=== PATIENT | male | born 1960 | race Caucasian/White ===

== ENCOUNTER → 2017-10-24 | Day surgery (SDC) | payer BC, OTHER ==
[~2017-10-24] VITALS: Ht 175.3 cm; Wt 98.0 kg
[~2017-10-24] MED LIST: LABETALOL HCL IV 5 MG/ML 20ML MDV IV STA; LABETALOL HCL IV 5 MG/ML 20ML MDV ONE; ONDANSETRON HCL INJ 2 MG/ML VIAL IV STA; PANTOPRAZOLE 40 MG 10ML VIAL IV STA; PROPOFOL IV EMULSION 10 MG/ML 20 ML VIAL ONE; ROCURONIUM BROMIDE 10 MG/ML 5ML VIAL ONE; SODIUM CHLORIDE 0.9% 1000ML 1,000 ML IV STA; SUCCINYLCHOLINE 200 MG/10 ML SYR ONE
[2017-10-24 19:54] LABS: BASOPHILS # (AUTO) 0.1 (0.0-0.1); BASOPHILS % 0.8 % (0.0-1.0); EOSINOPHILS # (AUTO) 0.1 (0.0-0.4); EOSINOPHILS % 0.9 % (0.0-6.0); HEMATOCRIT 50.9 % (38.2-49.6); HEMOGLOBIN 18.3 g/dL (14.0-18.0); LYMPHOCYTES # (AUTO) 1.9 (1.0-3.2); LYMPHOCYTES % 18.2 % (18.0-39.1); MEAN CORPUSCULAR HEMOGLOBIN 32.5 pg (28-32); MEAN CORPUSCULAR VOLUME 90.4 fL (81-99); MONOCYTES # (AUTO) 0.8 (0.2-0.8); MONOCYTES % 7.6 % (4.4-11.3); NEUTROPHILS # (AUTO) 7.7 (2.1-6.9); NEUTROPHILS % 72.2 % (38.7-80.0); PLATELET COUNT 223 x10e3/uL (140-360); RED BLOOD COUNT 5.63 x10e6/uL (4.3-5.7); RED CELL DISTRIBUTION WIDTH 12.6 % (11.7-14.4)
[2017-10-24 20:07] LABS: INR 0.95; PROTHROMBIN TIME 13.2 seconds (11.9-14.5)
[2017-10-24 20:08] LABS: PARTIAL THROMBOPLASTIN TIME 26.3 seconds (23.8-35.5)
[2017-10-24 20:21] LABS: ALANINE AMINOTRANSFERASE 36 IU/L (0-55); ALBUMIN 4.8 g/dL (3.5-5.0); ALBUMIN/GLOBULIN RATIO 1.3 (0.8-2.0); ALKALINE PHOSPHATASE 57 IU/L (40-150); ANION GAP 14.9 mmol/L (8-16); BLOOD UREA NITROGEN 17 mg/dL (7-26); BUN/CREATININE RATIO 14 (6-25); CALCIUM 10.2 mg/dL (8.4-10.2); CARBON DIOXIDE 27 mmol/L (22-29); CHLORIDE 103 mmol/L (98-107); CREATININE, SERUM 1.19 mg/dL (0.72-1.25); EST GLOMERULAR FILTRATION RATE > 60 ML/MIN (60-); GLUCOSE 94 mg/dL (74-118); LIPASE 409 U/L (8-78); MAGNESIUM 2.4 MG/DL (1.3-2.1); POTASSIUM 3.9 mmol/L (3.5-5.1); SODIUM 141 mmol/L (136-145)
--- NOTE | 2017-10-24 20:22 | Diagnostic Imaging Report ---
Portable chest x-ray CPT code 30549 INDICATION: Food bolus in the esophagus, chest pain COMPARISON: None FINDINGS: Frontal view of the chest obtained at 2007 hours. The cardiac silhouette is normal. No mediastinal air. The pulmonary vascular marking are normal. The lungs demonstrate no mass or infiltrate. The costophrenic angles are sharp. There is no pneumothorax. The osseous structures are intact and normal in morphology. IMPRESSION: 1. No pneumomediastinum or pneumothorax. 2. No foreign bodies. 3. Normal lungs. Signed by: Dr. Faye Castro MD on 10/24/2017 8:19 PM
[2017-10-24 20:31] LABS: TROPONIN I 0.035 ng/mL (0-0.300)
[2017-10-24 20:33] LABS: CREATINE KINASE 226 IU/L (30-200)
--- NOTE | 2017-10-25 04:56 | Operative Report ---
DATE OF PROCEDURE: October 24, 2017 REFERRING PHYSICIAN: Dr. Reinaldo Garcia PROCEDURE PERFORMED: Esophagogastroduodenoscopy with esophageal dilatation and biopsies. INDICATIONS FOR PROCEDURE: Dysphagia to solids, cannot swallow secretions, possible foreign body in the esophagus. MEDICATION: Patient was done under general endotracheal anesthesia. Please see anesthesiologist's note. PROCEDURE: With the patient in the supine position after induction of adequate general endotracheal anesthesia, a flexible fiberoptic Olympus gastroscope was introduced into the esophagus under direct visualization without any difficulty. The distal esophagus was diffusely ulcerated. It appears that the foreign body which was possibly a meat bolus had already passed. The scope was then advanced with ease into the stomach traversing a small hiatal hernia. There was a mild stricture noted at the GE junction and that was dilated to size 48-Macanese Powell. The mucosa overlying the antrum and the body revealed some diffuse erythema and moderate edema, and biopsies were obtained and sent to stain for H. pylori. Pylorus appeared to be of normal contour and shape. It was intubated with ease. The scope was advanced all the way to the 2nd portion of the duodenum. There was an approximately 8 mm sessile lesion noted in the proximal 2nd portion that was biopsied. The duodenal bulb appeared to be within normal limits. The scope was then withdrawn back into the stomach and retroflexion of the mucosa overlying the fundus and the cardia appeared to be within normal limits. The scope was then straightened out. The stomach was decompressed. The scope was subsequently withdrawn. Patient tolerated the procedure well. IMPRESSION 1. Ulcerated distal esophagus. 2. Esophageal stricture at gastroesophageal junction dilated to size 48-Macanese Powell. 3. Small hiatal hernia. 4. Gastritis, biopsied. Biopsies sent to stain for Helicobacter pylori. 5. Approximately 8 mm sessile nodule in proximal 2nd portion, biopsied. PLAN: Follow up histology. Initiate Protonix 40 mg 1 p.o. q.a.m. a.c. The patient will need a followup colonoscopy in 2-3 weeks with additional dilatation of the aforementioned esophageal stricture. Job#: [id number] RI cc:ESTUARDO GARCIA DO
== END | disposition home or self-care (01) ==
LOC: ER 18:50 → OR 20:27
PROVIDERS: ATTEND Internal Medicine Gastroenterology
DX: K22.2 Esophageal obstruction (principal); K29.70 Gastritis, unspecified, without bleeding; T18.108A Unspecified foreign body in esophagus causing other injury, initial encounter; K22.10 Ulcer of esophagus without bleeding; K21.9 Gastro-esophageal reflux disease without esophagitis; K44.9 Diaphragmatic hernia without obstruction or gangrene; K31.89 Other diseases of stomach and duodenum; G47.33 Obstructive sleep apnea (adult) (pediatric); I10 Essential (primary) hypertension
CPT/HCPCS: 36415; 43239; 43450; 71010; 80053; 82550; 82553; 83690; 83735; 84484; 85025; 85610; 85730; 93005; 99284; J2405; J3490

== ENCOUNTER → 2018-02-10 | Day surgery (SDC) | payer BC ==
[~2018-02-10] MED LIST changes: +FENTANYL CITRATE/PF 100MCG/2 ML INJ ONE; +HYOSCYAMINE SULFATE 0.5 MG/ML AMP ONE; -LABETALOL HCL IV 5 MG/ML 20ML MDV IV STA; -LABETALOL HCL IV 5 MG/ML 20ML MDV ONE; +LIDOCAINE HCL 2% LOCAL INJ 5 ML SDV VIAL INJ ONE; +LOSARTAN-HCTZ1 EACH PO; +MIDAZOLAM HCL 2 MG/2 ML VIAL ONE; -ONDANSETRON HCL INJ 2 MG/ML VIAL IV STA; -PANTOPRAZOLE 40 MG 10ML VIAL IV STA; +PANTOPRAZOLE SO40 MG PO; -PROPOFOL IV EMULSION 10 MG/ML 20 ML VIAL ONE; +PROPOFOL IV EMULSION 10 MG/ML 50 ML VIAL ONE; -ROCURONIUM BROMIDE 10 MG/ML 5ML VIAL ONE; -SODIUM CHLORIDE 0.9% 1000ML 1,000 ML IV STA; -SUCCINYLCHOLINE 200 MG/10 ML SYR ONE
--- NOTE | 2018-02-10 16:03 | Operative Report ---
DATE OF PROCEDURE: February 10, 2018 REFERRING PHYSICIAN: Dr. Lamont Garcia. PROCEDURE PERFORMED: 1. Esophagogastroduodenoscopy with esophageal dilatation and biopsies. 2. Colonoscopy with polypectomy. INDICATIONS FOR ESOPHAGOGASTRODUODENOSCOPY: Dysphagia to solids. INDICATIONS FOR COLONOSCOPY: Colorectal cancer screening. MEDICATION: Patient was done under MAC. Please see anesthesiologist's note. PROCEDURE: With the patient in the left lateral decubitus position, the flexible fiberoptic Olympus gastroscope was introduced into the esophagus under direct visualization without any difficulty. There was some patchy erythema noted in the distal esophagus. A minute nodule was noted at the GE junction, and that was biopsied. There was a mild stricture noted at the GE junction, and that was dilated to size 52-Turkmen Powell. The scope was then advanced with ease into the stomach, traversing a small sliding hiatal hernia. Mucosa overlying the antrum and the body revealed some diffuse erythema and mild to moderate edema, and biopsies were obtained and sent to stain for H. pylori. Pylorus appeared to be of normal contour and shape, was intubated with ease, and the scope was advanced all the way to the 2nd portion of the duodenum. The scope was then withdrawn slowly. Mucosa overlying the proximal 2nd portion and the duodenal bulb appeared to be within normal limits. The scope was then withdrawn back into the stomach and retroflexed, and the mucosa overlying the fundus and the cardia appeared to be within normal limits. The scope was then straightened out. It was subsequently withdrawn. Patient tolerated procedure well. IMPRESSION: 1. Distal esophagitis, mild. 2. Nodule, gastroesophageal junction, biopsied. 3. Stricture at gastroesophageal junction, mild, dilated to a size 52-Turk[place] Powell. 4. Gastritis biopsied. Biopsies sent to stain for H. pylori. PLAN: Follow up histology. Initiate Protonix 40 mg 1 p.o. q.a.m. a.c. Patient was then turned around and after adequate lubrication of the anal canal, a flexible fiberoptic Olympus colonoscope was inserted into the rectum with ease and advanced all the way to the cecum. It was then withdrawn slowly. Mucosa overlying the cecum, ascending, transverse and descending appeared to be within normal limits. Some diverticular disease was noted in the sigmoid colon. A minute polyp was noted in the distal rectum, and that was removed per hot biopsy forceps. The scope was then retroflexed into the distal rectum and small internal hemorrhoids were noted, none of which was actively bleeding. The scope was then straightened out. It was subsequently withdrawn. Patient tolerated procedure well. IMPRESSION: 1. Diverticulosis. 2. Rectal polyp hot biopsied. 3. Internal hemorrhoids, none actively bleeding. PLAN: Follow up histology. Initiate high-fiber low-fat diet. Initiate high-fiber supplement. Patient will need a followup colonoscopy in 3 to 5 years. Job#: [id number] EV cc:LAMONT GARCIA DO
--- OUTSIDE RECORDS SUMMARY | 2018-02-12 09:44 | XMS REPORT ---
Author Author [facility], [place] Address Unknown Phone Unavailable Care Team Providers Care Computer Science Professor Name Role Phone JOSEPHINE SMITH Unavailable Unavailable Problems This patient has no known problems. Allergies, Adverse Reactions, Alerts This patient has no known allergies or adverse reactions. Medications This patient has no known medications. Results Test Description Test Time Test Comments Text Results Atomic Results Result Comments CHEST SINGLE (PORTABLE) [address] [address] Patient Name: ANISHA CLARK MR #: [id number] : 1960 Age/Sex: 56/M Req #: [id number] Adm Physician: Ordered by: JOSEPHINE SMITH MD Report #: [id number] Location: ER Room/Bed: Procedure: [id number] DX/CHEST SINGLE (PORTABLE) Exam Date: 10/24/17 Exam Time: 1999 REPORT STATUS: Signed Portable chest x-ray CPT code 59681 INDICATION: Food bolus in the esophagus, chest pain COMPARISON: None FINDINGS: Frontal view of the chest obtained at 2007 hours. The cardiac silhouette is normal. No mediastinal air. The pulmonary vascular marking are normal. The lungs demonstrate no mass or infiltrate. The costophrenic angles are sharp. There is no pneumothorax. The osseous structures are intact and normal in morphology. IMPRESSION : 1. No pneumomediastinum or pneumothorax. 2. No foreign bodies. 3. Normal lungs. Signed by: Dr. Shaheen Castro MD on 10/24/2017 8:19 PM Dictated By: SHAHEEN CASTRO MD 18 Transcribed By: MASOOD on 10/24/172018 COPY TO: JOSEPHINE SMITH MD
== END | disposition home or self-care (01) ==
LOC: ENDO 07:00
PROVIDERS: ATTEND Internal Medicine Gastroenterology
DX: Z12.11 Encounter for screening for malignant neoplasm of colon (principal); K62.1 Rectal polyp; K29.70 Gastritis, unspecified, without bleeding; K22.2 Esophageal obstruction; K20.9 Esophagitis, unspecified; K22.8 Other specified diseases of esophagus; K21.9 Gastro-esophageal reflux disease without esophagitis; K57.30 Diverticulosis of large intestine without perforation or abscess without bleeding; K64.8 Other hemorrhoids; J45.909 Unspecified asthma, uncomplicated; I10 Essential (primary) hypertension; Z01.810 Encounter for preprocedural cardiovascular examination
CPT/HCPCS: 43239; 43450; 45384; 93005; J1980; J2001; J2250; 45378

== ENCOUNTER → 2018-03-02 | Outpatient (CLI) | payer BC ==
[~2018-03-02] MED LIST changes: -FENTANYL CITRATE/PF 100MCG/2 ML INJ ONE; -HYOSCYAMINE SULFATE 0.5 MG/ML AMP ONE; -LIDOCAINE HCL 2% LOCAL INJ 5 ML SDV VIAL INJ ONE; -MIDAZOLAM HCL 2 MG/2 ML VIAL ONE; -PROPOFOL IV EMULSION 10 MG/ML 50 ML VIAL ONE
== END ==
LOC: SLEEP 20:03
PROVIDERS: ATTEND Family Medicine
DX: G47.33 Obstructive sleep apnea (adult) (pediatric) (principal)
CPT/HCPCS: 95811